=== PATIENT | male | born 1975 | race Caucasian/White ===

== ENCOUNTER 2020-12-23 01:04 | Emergency (ER) | payer BC ==
[2020-12-23] MEDS ORDERED: HYDROmorphone 0.5 MG/0.5 ML Syringe IVPUSH ONE ×2 (01:20→03:37)
[2020-12-23] MEDS ORDERED: Ondansetron 4 MG/2 ML SDV IVPUSH ONE (01:20)
--- NOTE | 2020-12-23 01:25 | EDM.PDOC ---
ED HPI GENERAL MEDICAL PROBLEM - General Chief Complaint: Abdominal Pain Stated Complaint: possible hiatal hernia Time Seen by Provider: 12/23/20 01:14 Source of Information: Reports: Patient, Family History Limitations: Reports: No Limitations - History of Present Illness INITIAL COMMENTS - FREE TEXT/NARRATIVE: The 45-year-old male. About 3 hours prior to coming to the ER he had onset of severe epigastric sharp pain that would come and go and seem to go up into his center of his chest to his throat. He has a history of reflux. He has tried some Tums Pepto and apple cider vinegar but it has not helped he has vomited once. He does appear to be in some mild distress holding his epigastric area. He states he does not eat spices. He did have some Ramen noodles earlier when he got home from work but has not eaten anything since that. He has no history of gallbladder disease that he is aware of. He has no history of pancreatitis. Epigastric Pain Score (Numeric/FACES): 10 - Related Data Allergies Allergy/AdvReac Type Severity Reaction Status Date / Time No Known Allergies Allergy Verified 07/02/19 17:28 CDT Home Meds: Home Meds Erythromycin Base [Erythromycin 0.5% Ophth Oint] 1 applic OP Q12H #1 tube 07/02/19 [Rx] Famotidine [Pepcid] 20 mg PO DAILY #30 tablet 12/23/20 [Rx] Past Medical History Respiratory History: Reports: Asthma - Infectious Disease History Infectious Disease History: Reports: Chicken Pox - Past Surgical History Respiratory Surgical History: Reports: None Social & Family History - Family History Family Medical History: No Pertinent Family History - Caffeine Use Caffeine Use: Reports: None ED ROS GENERAL - Review of Systems Review Of Systems: See Below Constitutional: Denies: Fever, Chills HEENT: Reports: No Symptoms Respiratory: Denies: Shortness of Breath, Cough Cardiovascular: Reports: Chest Pain Endocrine: Reports: No Symptoms GI/Abdominal: Reports: Abdominal Pain, Nausea, Vomiting. Denies: Constipation, Diarrhea : Reports: No Symptoms Musculoskeletal: Reports: No Symptoms Skin: Reports: No Symptoms Neurological: Reports: No Symptoms Psychiatric: Reports: No Symptoms Hematologic/Lymphatic: Reports: No Symptoms ED EXAM, GI/ABD - Physical Exam Exam: See Below Exam Limited By: No Limitations General Appearance: Alert, WD/WN, Mild Distress Eyes: Bilateral: Normal Appearance Ears: Normal External Exam Nose: Normal Inspection Throat/Mouth: Normal Lips, Normal Voice, No Airway Compromise Head: Normocephalic Neck: Supple Respiratory/Chest: No Respiratory Distress, Lungs Clear, Normal Breath Sounds Cardiovascular: Regular Rate, Rhythm, No Murmur GI/Abdominal Exam: Soft, Other (Tender in epigastric and the right upper quadrant on palpation. It seems to aggravate his pain. The rest of his abdomen does not appear to be tender.) Back Exam: Normal Inspection, Full Range of Motion Extremities: Normal Inspection, Normal Range of Motion Neurological: Alert, Oriented Psychiatric: Anxious Skin Exam: Warm, Dry #1 Interpretation EKG Date: 12/23/20 Time: 01:30 EKG Interpretation Comments: EKG shows a normal sinus rhythm rate of 66. There is no acute ST or T wave changes. There is no ischemia noted. Course - Vital Signs Last Recorded V/S: Last Vital Signs Temp 97.1 F 12/23/20 01:12 Pulse 77 12/23/20 01:12 Resp 20 12/23/20 01:12 BP 123/86 12/23/20 01:12 Pulse Ox 100 12/23/20 01:12 - Orders/Labs/Meds Orders: Active Orders 24 hr Category Date Time Status EKG 12 Lead [EKG Documentation Completion] [RC] STAT Care 12/23/20 01:22 Active Abdomen Ltd [US] Stat Exams 12/23/20 01:21 Taken CXR [Chest 1V Frontal] [CR] Stat Exams 12/23/20 01:21 Taken Sodium Chloride 0.9% [Normal Saline] 1,000 ml Med 12/23/20 01:30 Active IV ASDIRECTED Medication Orders Sodium Chloride (Normal Saline) 1,000 mls @ 500 mls/hr IV ASDIRECTED RUBI Last Admin: 12/23/20 01:33 Dose: 500 mls/hr Documented by: REGAN Labs: Laboratory Tests 12/23/20 12/23/20 Range/Units 01:25 01:25 WBC 4.43 (4.23-9.07) K/mm3 RBC 5.12 (4.63-6.08) M/mm3 Hgb 14.7 (13.7-17.5) gm/dl Hct 44.3 (40.1-51.0) % MCV 86.5 (79.0-92.2) fl MCH 28.7 (25.7-32.2) pg MCHC 33.2 (32.2-35.5) g/dl RDW Std Deviation 41.0 (35.1-43.9) fL Plt Count 184 (163-337) K/mm3 MPV 8.5 L (9.4-12.3) fl Neut % (Auto) 56.3 (34.0-67.9) % Lymph % (Auto) 24.2 (21.8-53.1) % [place] % (Auto) 16.7 H (5.3-12.2) % Eos % (Auto) 1.8 (0.8-7.0) Baso % (Auto) 0.5 (0.1-1.2) % Neut # (Auto) 2.50 (1.78-5.38) K/mm3 Lymph # (Auto) 1.07 L (1.32-3.57) K/mm3 [place] # (Auto) 0.74 (0.30-0.82) K/mm3 Eos # (Auto) 0.08 (0.04-0.54) K/mm3 Baso # (Auto) 0.02 (0.01-0.08) K/mm3 Manual Slide Review Abnormal smear Sodium 143 (136-145) mEq/L Potassium 3.4 L (3.5-5.1) mEq/L Chloride 105 (98-107) mEq/L Carbon Dioxide 26 (21-32) mEq/L Anion Gap 15.4 H (5-15) BUN 12 (7-18) mg/dL Creatinine 1.1 (0.7-1.3) mg/dL Est Cr Clr Drug Dosing TNP Estimated GFR (MDRD) > 60 (>60) mL/min BUN/Creatinine Ratio 10.9 L (14-18) Glucose 96 (74-106) mg/dL Calcium 9.6 (8.5-10.1) mg/dL Total Bilirubin 0.4 (0.2-1.0) mg/dL AST 18 (15-37) U/L ALT 34 (16-63) U/L Alkaline Phosphatase 93 (46-116) U/L Troponin I < 0.017 (0.00-0.056) ng/mL Total Protein 7.8 (6.4-8.2) g/dl Albumin 4.3 (3.4-5.0) g/dl Globulin 3.5 gm/dL Albumin/Globulin Ratio 1.2 (1-2) Lipase 173 (73-393) U/L Meds: Medications Generic Name Dose Route Start Last Admin Trade Name Freq PRN Reason Stop Dose Admin Sodium Chloride 1,000 mls @ 500 mls/hr 12/23/20 01:30 12/23/20 01:33 Normal Saline IV 500 mls/hr ASDIRECTED RUBI Administration Discontinued Medications Generic Name Dose Route Start Last Admin Trade Name Freq PRN Reason Stop Dose Admin Hydromorphone HCl 0.5 mg 12/23/20 01:20 12/23/20 01:32 Dilaudid IVPUSH 12/23/20 01:21 0.5 mg ONETIME ONE Administration Ondansetron HCl 4 mg 12/23/20 01:20 12/23/20 01:32 Zofran IVPUSH 12/23/20 01:21 4 mg ONETIME ONE Administration - Radiology Interpretation Free Text/Narrative:: Chest x-ray does not show any acute changes in the lungs. The heart appears to be normal size without abnormality. Ultrasound of the gallbladder did not show any gallstones or gallbladder thickening there is no other acute finding of the right upper quadrant. - Re-Assessments/Exams Free Text/Narrative Re-Assessment/Exam: 12/23/20 03:29 I spoke to the patient regarding the ultrasound results. I explained to him that there is 2 ways for the gallbladder to malfunction 1 with gallstones the other is when his disease and just sits there and spasms. He also could have severe reflux and esophageal spasms but he needs to have this worked up to find out what is going on. I explained to him regarding his blood work that his heart was fine and that his pancreas appeared to be normal as well as his liver. I will give him a referral for a family physician. Departure - Departure Time of Disposition: 03:30 Disposition: Home, Self-Care 01 Condition: Good Clinical Impression: Right upper quadrant abdominal pain Vomiting Qualifiers: Vomiting Intractability: unspecified Nausea presence: unspecified - Discharge Information *PRESCRIPTION DRUG MONITORING PROGRAM REVIEWED*: Not Applicable *COPY OF PRESCRIPTION DRUG MONITORING REPORT IN PATIENT JAMES: Not Applicable Prescriptions: Famotidine [Pepcid] 20 mg PO DAILY #30 tablet Instructions: Abdominal Pain, Adult Referrals: PCP,Not In Area [Primary Care Provider] - Forms: ED Department Discharge Additional Instructions: You were seen in the emergency room for epigastric and right upper quadrant abdominal pain. We found that your gallbladder does not have gallstones but it can also malfunction and just sit there and spasm causing this kind of pain you were experiencing. Severe esophageal reflux with esophageal spasms can also be rather painful. You need some follow-up and work-up with a HIDA scan for your gallbladder and possibly a upper GI swallow to look at your esophagus. In the meantime you need to avoid anything that is fried, oily, or greasy since that will make the gallbladder malfunction. You also need to be on some medications for the reflux which I will provide a prescription for it will be Pepcid 20 mg a day it helps stop the reflux. Follow-up with your family doctor for reevaluation and continued work-up. Return to the ER if your symptoms worsen. Sepsis Event Note (ED) - Evaluation Sepsis Screening Result: No Definite Risk - Focused Exam Vital Signs: Vital Signs Temp Pulse Resp BP Pulse Ox 12/23/20 01:12 97.1 F 77 20 123/86 100 - My Orders Last 24 Hours: My Active Orders 12/23/20 01:21 Abdomen Ltd [US] Stat CXR [Chest 1V Frontal] [CR] Stat 12/23/20 01:22 EKG 12 Lead [EKG Documentation Completion] [RC] STAT 12/23/20 01:30 Sodium Chloride 0.9% [Normal Saline] 1,000 ml IV ASDIRECTED - Assessment/Plan Last 24 Hours: My Active Orders 12/23/20 01:21 Abdomen Ltd [US] Stat CXR [Chest 1V Frontal] [CR] Stat 12/23/20 01:22 EKG 12 Lead [EKG Documentation Completion] [RC] STAT 12/23/20 01:30 Sodium Chloride 0.9% [Normal Saline] 1,000 ml IV ASDIRECTED
[2020-12-23] MEDS ORDERED: Sodium Chloride 0.9% 1,000 ML IV SCH (01:30)
--- NOTE | 2020-12-23 11:38 | CR ---
Chest: Portable view of the chest was obtained. Comparison: No prior chest imaging is available. Heart size and mediastinum are normal. Lungs are clear of no acute parenchymal change. Bony structures are grossly intact. Impression: 1. Nothing acute is seen on portable chest x-ray. Diagnostic code #1
--- NOTE | 2020-12-23 11:46 | US ---
Limited abdominal ultrasound: Multiple real-time images of the upper right abdomen were obtained. Comparison: No prior abdominal imaging is available. Liver shows no focal abnormality. Gallbladder contains no shadowing gallstones. No gallbladder wall thickening is seen. Common hepatic duct measures normal in size. Common bile duct is not well seen but most likely normal in size. Pancreas is obscured from bowel gas. Right kidney shows no hydronephrosis or mass. Right kidney shows a small cyst measuring 1.1 cm. Right kidney has a length of 9.8 cm. Main portal vein shows normal hepatopedal flow. Impression: 1. Small 1.1 cm cyst within the right kidney. 2. Nonvisualized pancreas due to bowel gas. 3. Nothing acute is otherwise seen on right upper quadrant abdominal ultrasound. 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
== END 2020-12-23 03:55 | disposition home or self-care (01) ==
LOC: JD.ED 01:04
DX: R10.11 Right upper quadrant pain (principal); R11.2 Nausea with vomiting, unspecified; J45.909 Unspecified asthma, uncomplicated; Z79.899 Other long term (current) drug therapy
CPT/HCPCS: 36415; 71045; 76705; 80053; 83690; 84484; 85025; 93005; 96374; 96375; 96376; 99284; J1170; J2405; J7030; 93010